=== PATIENT | female | born 1985 | race African-American/Black ===

== ENCOUNTER 2025-03-31 19:20 | Emergency (ER) | payer MEDICAID, SELFPAY ==
[2025-03-31 19:22] VITALS: BP 117/76; PULSE 111; RESP 18; TEMP 37.1; O2SAT 98; BMI 30.8
[2025-03-31 20:16] LABS: PCR FLU A Negative PCR FLU A (Negative); PCR FLU B Negative PCR FLU B (Negative); PCR RSV Negative PCR RSV (Negative); SARS PCR* Negative SARS-CoV-2 (Negative)
--- NOTE | 2025-03-31 21:20 | ED_ITS ---
HPI - General Adult General Time Seen by Provider: 21:21 Date Seen: 03/31/25 Chief complaint: Cough Stated complaint: Acid reflux Time Seen by Provider: 03/31/25 21:11 Source: patient and RN notes reviewed Mode of arrival: ambulatory Limitations: no limitations History of Present Illness HPI narrative: This 39-year-old female with underlying history of asthma is coming in feeling like she can not breathe, she states she is coughing, has significant nasal congestion cannot breathe through her nose, has sore throat. Her eyes are watering. She has been sick for about 3 days. She does states she has a history of asthma. She was given prednisone and an albuterol inhaler [place] [facility]. Her illness started 3 days ago. She has not noted any fevers. She feels like h er throat is sore, like she could have strep throat. She is tired. She does states she smokes some. She is requesting an inhaler or breathing treatment now. She states it feels like it dunn when she coughs. She states she feels like she is not getting enough air. Her oxygen saturation was excellent on arrival, reassured her of this. Nursing staff did do a triple viral swab and was able to review with patient that this is negative. Related Data Home Medications ?Medication ?Instructions ?Recorded ?Confirmed albuterol sulfate 90 mcg/actuation 2 inh inhalation Q4 -6H PRN 03/31/25 03/31/25 aerosol inhaler fluticasone propion-salmeterol inhalation 03/31/25 prednisone .ROUTE 03/31/25 Previous Rx's ?Medication ?Instructions ?Recorded fluticasone propionate 50 2 spray intranasal DAILY #16 grams 03/31/25 mcg/actuation nasal spray,suspension (Flonase Allergy Relief) ipratropium 0.5 mg-albuterol 3 mg 3 ml inhalation QID PRN #90 mL 03/31/25 (2.5 mg base)/3 mL nebulization soln nebulizer and compressor #1 ea 03/31/25 Allergies Allergy/AdvReac Type Severity Reaction Status Date / Time No Known Drug Allergies Allergy Verified 03/31/25 22:10 Review of Systems Status of ROS: Reports: 6 or more systems reviewed and unremarkable except as noted in History and below PFSH PFSH Social History Smoking Status: Never smoker How often do you have a drink containing alcohol: never AUDIT-C Alcohol total score: 0 Non-prescribed substance use: denies use Exam Const: Vital Signs, click to edit/add: Vital Signs - 24 hr 03/31/25 19:22 03/31/25 22:10 Temperature 98.8 F Pulse Rate [Pulse Oximeter] 111 H Respiratory Rate 18 Blood Pressure [Ri ght Upper Arm] 117/76 Pulse Oximetry 98 98 Oxygen Delivery Me thod Room Air This 39-year-old female seen in exam room 7, she is alert, interactive, no apparent distress. She has audible nasal congestion. Did hear her sneeze, did hear her cough. Her cough is light, not harsh. Speech is normal. Sclera clear, no mattering or periorbital changes/swelling noted. Serum min in her canals. Oropharynx with normal mucosa, no exudates erythema, good oral airway. Neck is supple, no adenopathy. Lungs are clear, good air entry, no wheeze or crackles, no significantly prolonged expiratory phase. She really does have good air entry and lung sounds are easily auscultated. CV regular rate and rhythm, no murmur, normal S1-S2. Documenting provider has reviewed patient's vital signs: yes Course Course ED Course: Will have patient monitored on pulse oximetry. I have ordered a DuoNeb. Will do a portable chest x-ray. Will do some baseline blood work on her. Reviewed with her that this is likely something viral end up sub the that we have a treatment to make this go away. Will look at other causes like community- acquired pneumonia, look at her white blood count make sure it is not significantly elevated. Reevaluation(s) Time of Reevaluation #1: 22:31 Reevaluation #1: Patient requested something for nasal congestion; did order Sudafed. Time of Reevaluation #2: 22:48 Reevaluation #2: Reviewed with Elia there is no evidence of pneumonia on her chest x-ray. Her lungs were clear here she is oxygenating 99% room air after neb. she asks if she is going to be able to sleep tonight. Reviewed with her that I do not know for sure but my suspicion is that sleep may be difficult or interrupted at least probably for the next few days. We did review that her white blood count is mildly elevated but this could be confounded by the prednisone use. We discussed use of Z-Lauro, this can have anti-inflammatory effects for asthmatics and certainly would cover for anything like strep or tonsillitis. Her throat looked reassuring. We discussed qpcs-vbr-eqetynr cough and cold medicines. She admitted that she does not have a fan or air conditioning. It is quite hot out. Did discuss Robitussin with codeine from [employer]. I suspect she largely has viral illness but she is feeling quite miserable. Time of Reevaluation #3: 23:19 Reevaluation #3: Patient at discharge was requesting a neb machine from nursing staff. Will send in a prescription for nebulizer and DuoNebs for her. Vital Signs Vital signs: Initial Vital Signs Temperature 98.8 F 03/31/25 19:22 Temperature Source Temporal Artery Scan 03/31/25 19:22 Pulse Rate 111 H 03/31/25 19:22 Pulse Rhythm Regular 03/31/25 19:22 Respiratory Rate 18 03/31/25 19:22 Blood Pressure 117/76 03/31/25 19:22 Blood Pressure Mean 89 03/31/25 19:22 Blood Pressure Position Sitting 03/31/25 19:22 Pulse Oximetry 98 03/31/25 19:22 Oxygen Delivery Method Room Air 03/31/25 19:22 Vital Signs Temperature 98.8 F 03/31/25 19:22 Pulse Rate 111 H 03/31/25 19:22 Respiratory Rate 18 03/31/25 19:22 Blood Pressure 117/76 03/31/25 19:22 Pulse Oximetry 98 03/31/25 19:22 Oxygen Delivery Method Room Air 03/31/25 19:22 Temperature 98.8 F 03/31/25 19:22 Pulse Rate 111 H 03/31/25 19:22 Respiratory Rate 18 03/31/25 19:22 Blood Pressure 117/76 03/31/25 19:22 Pulse Oximetry 98 03/31/25 22:10 Oxygen Delivery Method Room Air 03/31/25 19:22 Medications Administered Medications: Discontinued Medications Generic Name Dose Route Start Last Admin Trade Name Freq PRN Reason Stop Dose Admin Albuterol/Ipratropium 1 neb 03/31/25 21:26 03/31/25 22:09 Iprat-Albut 0.5-2.5 Mg/3 Ml Neb IH 03/31/25 21:27 1 neb ONCE ONE Administration Pseudoephedrine HCl 30 mg 03/31/25 22:16 03/31/25 22:30 Pseudoephedrine Hcl 30 Mg Tablet PO 03/31/25 22:17 30 mg ONCE ONE Administration Medical Decision Making Lab Data Lab results reviewed: Yes I reviewed the patient's lab results Labs: Lab Results 03/31/25 03/31/25 Range/Units 19:30 21:40 WBC 14.28 H (4.50-11.00) K/uL RBC 3.19 L (4.00-5.20) m/uL Hgb 10.3 L (12.0-16.0) gm/dL Hct 30.9 L (33.0-51.0) % MCV 97 (80-100) fL MCH 32 (26-34) pg MCHC 33 (32-36) gm/dL RDW Coeff of Zuleima 13.5 (11.5-15.5) % Plt Count 256 (140-440) K/uL Neut % (Auto) 83.4 H (42.0-72.0) % Lymph % (Auto) 8.7 L (20-44) % [place] % (Auto) 7.6 (0.0-11.0) % Eos % (Auto) 0.0 (0.0-7.0) % Baso % (Auto) 0.1 (0.0-3.0) % Neut # (Auto) 11.90 H (1.7-7.0) K/uL Lymph # (Auto) 1.20 (0.90-2.90) K/uL [place] # (Auto) 1.10 H (0.00-0.90) K/UL Eos # (Auto) 0.00 (0.00-0.50) K/uL Baso # (Auto) 0.00 (0.00-0.30) K/uL Abs Immat Gran (auto) 0.00 (0.00-0.30) K/uL Imm/Tot Granulo (auto) 0.2 % VBG pH 7.392 (7.32-7.43) VBG pCO2 40 (40-50) mmHG VBG pO2 60.8 H (25-47) mmHG VBG HCO3 24 (21-28) mmol/L C-Reactive Protein < 0.5 L (0.5-1.0) mg/dL SARS-CoV-2 (PCR) Negative SARS-CoV-2 (Negative) Influenza Type A (PCR) Negative PCR FLU A (Negative) Influenza Type B (PCR) Negative PCR FLU B (Negative) RSV (PCR) Negative PCR RSV (Negative) Imaging Data Chest x-ray: Attestation: I have reviewed the pertinent imaging results. Radiologist's impression: Patient: ELIA CHENEY Facility:?[facility] Patient ID:?[id number] Site Patient ID:?[id number]. Site :?[id number] Study:?XRay-Chest 1V PORTABLE-03/31/2025 9:49:54 PM Ordering Physician:Pancho Dougherty Final Report: INDICATION: Cough, asthma TECHNIQUE: Chest radiograph 1 view COMPARISON: None FINDINGS: The sensitivity and specificity of the exam are moderately limited by the patient`s body habitus. Mediastinum: The mediastinum is normal in appearance. The heart silhouette is normal in size and morphology. Lung: Moderate pulmonary vascular congestion is noted. No sign of pleural effusion seen. No pneumothorax is identified. Bone and Soft tissue: Unremarkable for age. IMPRESSION: 1. Moderate pulmonary vascular congestion is noted. Dictated by Luis Carlos Pichardo MD @ 03/31/2025 10:03:18 PM Dictated by: Luis Carlos Pichardo MD @ 03/31/2025 22:03:34 (Electronic Signature) Discharge Plan Discharge Clinical Impression: Acute upper respiratory infection Asthma Qualifiers: Asthma severity: unspecified severity Asthma persistence: unspecified Asthma complication type: unspecified Qualified Code(s): J45.909 - Unspecified asthma, uncomplicated Patient Disposition: Home, Self-Care Condition: Stable Instructions: Asthma (ED), Upper Respiratory Infection (ED) Additional Instructions: Believe that this certainly could be viral. Did give you prescription for a Z- Lauro, this can be beneficial in asthmatics and help diminish some inflammatory response. Likewise, if you have any bacterial sore throat or pharyngitis, this certainly will treat, does treat for strep. Can continue with the albuterol and prednisone as prescribed by Naya. Did give you Robitussin AC 5 mL every 6 hours as needed for coughing. If you are not improving over the next week, feel your worsening at any point, do recommend re-evaluation. Can use [id number] cough and cold medicines as well. Have sent a prescription for nasal steroid into the pharmacy for you, this may help with decreasing nasal membrane congestion. Activity Level: Activity as Tolerated Prescriptions: New fluticasone propionate [Flonase Allergy Relief] 50 mcg/actuation spray,suspension 2 spray intranasal DAILY Qty: 16 0RF Rx Instructions: administer into each nostril (DME) nebulizer and compressor Device See Rx Instructions .Route Qty: 1 0RF Rx Instructions: As directed ipratropium-albuterol 0.5 mg-3 mg(2.5 mg base)/3 mL solution for nebulization 3 ml inhalation QID PRNQty: 90 0RF No Action prednisone .ROUTE albuterol sulfate 90 mcg/actuation HFA aerosol inhaler 2 inh inhalation Q4-6H PRN fluticasone propion-salmeterol [Advair Diskus] inhalation Follow Up/Referrals: Provider,Not a Local [Primary Care Provider, Family Practice] Stand Alone Forms: [employer] Info Instructions Procedures ABG Interpretation ABG Results: 03/31/25 21:40 VBG pH 7.392 VBG pCO2 40 VBG pO2 60.8 H VBG HCO3 24
--- NOTE | 2025-03-31 21:26 | CRLHL7_ITS ---
For Patients: As a result of the Cures Act, medical imaging exams and procedure reports are released immediately into your electronic medical record. You may view this report before your referring provider. If you have questions, please contact your health care provider. INDICATION: Cough, asthma TECHNIQUE: Chest radiograph 1 view COMPARISON: None FINDINGS: The sensitivity and specificity of the exam are moderately limited by the patient`s body habitus. Mediastinum: The mediastinum is normal in appearance. The heart silhouette is normal in size and morphology. Lung: Moderate pulmonary vascular congestion is noted. No sign of pleural effusion seen. No pneumothorax is identified. Bone and Soft tissue: Unremarkable for age. IMPRESSION: 1. Moderate pulmonary vascular congestion is noted. Dictated by Luis Carlos Pichardo MD @ 03/31/2025 10:03:18 PM Dictated by: Luis Carlos Pichardo MD @ 03/31/2025 22:03:34 (Electronically Signed)
[2025-03-31 21:46] LABS: HCO3 VBG 24 mmol/L (21-28); PCO2 VBG 40 mmHG (40-50); PO2 VBG 60.8 mmHG (25-47); pH VBG 7.392 (7.32-7.43)
[2025-03-31 21:50] LABS: Hematocrit* 30.9 % (33.0-51.0); Hemoglobin* 10.3 gm/dL (12.0-16.0); Immature Granulocytes Pct Auto 0.2 %; Mean Corpuscular HGB Conc 33 gm/dL (32-36); Mean Corpuscular Hemoglobin 32 pg (26-34); Mean Corpuscular Volume 97 fL (80-100); RDW Coefficient of Variation % 13.5 % (11.5-15.5); Red Blood Count* 3.19 m/uL (4.00-5.20); White Blood Count* 14.28 K/uL (4.50-11.00)
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
--- OUTSIDE RECORDS SUMMARY | 2025-03-31 21:51 | XMS_ITS | Clinical Summary ---
Author Organization [facility] Address [address] [place] [address] Care Team Providers Care Window Trimmer Name Role Phone Doctor, No Primary Care Provider Unavailabl e Clinic, No Primary Unavailable Unavailable Allergies No known active allergies Medications ALBUTEROL INHL Inhale. Activ e methocarbamoL (ROBAXIN) 500 mg oral tablet Take 1-2 tablets (500-1,000 mg) by mouth every 6 (six) hours as needed (back pain). 30 tablet 0 Active HYDROcodone-yulissa taminophen (NORCO) 5-325 mg oral tablet Take 1-2 tablets by mouth every 6 (six) hours as needed for pain. 10 tablet 0 Active albuterol HFA (PROVENTIL;VENT MAN HFA) 90 mcg/actuation Inhl inhaler Inhale 2 puffs every 4 (four) hours as needed for shortness of breath or Wheezing. 1 Inhaler 0 Active acetaminophen (TYLENOL) 500 mg oral tablet Take 1-2 tablets (500-1,000 mg) by mouth every 6 (six) hours as needed for pain or fever. 30 tablet 5 Active ibuprofen (ADVIL) 600 mg oral tablet Take 1 tablet (600 mg) by mouth every 6 (six) hours as needed. 30 tablet 5 Active Social History Tobacco Use Types Packs/Day Years Used Date Smoking Tobacco: Some Days Cigarettes Smokeless Tobacco: Never Tobacco Cessation:Ready to Q uit: Not Asked; Counseling Given: Not Answered Alcohol Use Standard Drinks/Week Comments Yes 0 (1 standard drink = 0.6 oz pur e alcohol) Every three days Humiliation, Afraid, Rape, and Kick questionnair e Answer Date Recorded Within the last year, have y ou been afraid of your partner or ex-partner? No 12/05/2024 Within the last year, have y ou been humiliated or emotionally abused in other ways by your partner or ex-partner? No Within the last year, have y ou been kicked, hit, slapped, or otherwise physically hurt by your partner or ex-partner? No 12/05/2024 Within the last year, have y ou been raped or forced to have any kind of sexual activity by your partner or ex-partner? No 12/05/2024 Comments Unknown Sex and Gender Information Value Date Recorded Sex Assigned at Not on file Legal Sex Female 7:39 PM CDT Gender Identity Not on file Sexual Orientation Not on file Last Filed Vital Signs Vital Sign Reading Time Taken Comments Blood Pressure 110/71 12/05/2024 3:15 PM CDT Pulse 99 12/05/2024 3:15 PM CDT Temperature 37.2 C (99 F) 12/05/2024 3:15 PM CDT Respiratory Rate 16 12/05/2024 3:15 PM CDT Oxygen Saturation 99% 12/05/2024 3:15 PM CDT Inhaled Oxygen Concentration - - Weight - - Height 165.1 cm (5' 5) 12/05/2024 3:14 PM CDT Body Mass Index - - Plan of Treatment Health Maintenance Due Date Last Done Comments Hepatitis C Screening 1987 Pap Smear 1987 Anxiety Screening (KELLY-2) 1988 Depression Assessment (PHQ-2) 1988 Pneumococcal Vaccine (1 of 2 - PCV) 2006 HPV Vaccine (1 - 3-dose SCDM series) 2014 COVID-19 Vaccine (3 - 2024-2 6 season) 2025 07/12/2022, 09/10/2021 Influenza Vaccine (#1) 2025 Adult Tetanus Booster 05/28/2034 05/28/2024 , 05/17/2022 RSV Vaccines (1 - 1-dose 75+ series) 2062 Meningococcal B Vaccine Aged Out No l onger eligible based on patient's age to complete this topic [facility] Care Teams Window Trimmer Relationship Specialty Start Date End Date Doctor, No No ad PCP - General Radiology 11/21/19 Clinic, No Primary No ad PCP - Primary Care Clinic 11/21/19
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
[2025-03-31 22:02] LABS: Immature Granulocytes Abs Auto 0.00 K/uL (0.00-0.30); Lymphocytes Absolute Auto 1.20 K/uL (0.90-2.90); Slide Review Reflex No
[2025-03-31] MEDS: IPRAT-ALBUT 0.5-2.5 MG/3 ML NEB 1 NEB IH (22:09)
[2025-03-31 22:10] VITALS: O2SAT 98
[2025-03-31] MEDS: PSEUDOEPHEDRINE HCL 30 MG TABLET PO (22:30)
== END 2025-03-31 23:22 | disposition home or self-care (01) ==
PROVIDERS: Emergency Provider Family Medicine
DX: J06.9 Acute upper respiratory infection, unspecified (principal); J45.909 Unspecified asthma, uncomplicated
CPT/HCPCS: 36415; 71045; 82803; 85025; 86140; 87631; 94761; 99284; A9270